=== PATIENT | male | born 2000 ===

== ENCOUNTER 2019-07-05 15:57 | Emergency (ER) | payer OTHER ==
[2019-07-05] MEDS ORDERED: Lidocaine 1% (PF) 30 ML VIAL ONE (16:15)
== END 2019-07-05 16:51 | disposition still patient (30) ==
LOC: NAV ERS 15:57
DX: S01.512A Laceration without foreign body of oral cavity, initial encounter (principal); G43.909 Migraine, unspecified, not intractable, without status migrainosus; Z79.899 Other long term (current) drug therapy; W50.3XXA Accidental bite by another person, initial encounter; Y93.67 Activity, basketball
CPT/HCPCS: 12013; J2001